=== PATIENT | male | born 1990 | race Caucasian/White ===

== ENCOUNTER 2023-12-30 20:20 | Emergency (ER) | payer MEDICAID ==
[~2023-12-30] VITALS: Ht 188 cm; Wt 84.9 kg
[2023-12-30 20:29] VITALS: BP 146/95; PULSE 100; RESP 18; TEMP 98.7; O2SAT 100
== END 2023-12-30 23:31 | disposition home or self-care (01) ==
LOC: ER 20:41
DX: M79.601 Pain in right arm (principal)
CPT/HCPCS: 99281